=== PATIENT | male | born 1985 | race Two or more races ===

== ENCOUNTER 2019-05-19 02:42 | Inpatient (IN) | payer BC ==
[~2019-05-19] VITALS: Ht 185.4 cm; Wt 133.5 kg
[2019-05-19 03:12] LABS: Basophils # (auto) 0.1 uL; Eosinophils # (auto) 0.2 uL; Hemoglobin 10.4 g/dL (13.5-17.5); Monocytes # (auto) 0.5 uL
[2019-05-19 03:14] LABS: Basophils % (auto) 0.9 % (0.0-2.0); Eosinophils % (auto) 2.5 % (0.0-7.0); Hematocrit 33.6 % (41.0-53.0); Lymphocytes # (auto) 1.9 uL; Lymphocytes % (auto) 28.9 % (10.0-50.0); Mean Corpuscular Hemoglobin 23.4 pg (28.0-32.0); Mean Corpuscular Volume 75.5 fL (80.0-100.0); Monocytes % (auto) 7.9 % (0.0-12.0); Neutrophils % (auto) 59.8 % (37.0-80.0); Nucleated Red Blood Cells % 0.2 %; Platelet Count (auto) 311 10^3/uL (140-450); Red Blood Cells 4.45 10^6/uL (4.5-5.90); Red Cell Distribution Width 19.8 % (11.8-14.3); White Blood Cell 6.7 10^3/uL (4.4-10.8)
[2019-05-19] MEDS ORDERED: MORPHINE SULFATE 4 MG/ML SYR/VIAL IV ONE (03:15)
[2019-05-19] MEDS ORDERED: ONDANSETRON HCL 4 MG/2 ML VIAL IV ONE (03:15)
[2019-05-19 03:32] LABS: Albumin 3.4 g/dL (3.4-5.0); BUN/Creatinine Ratio 18.1; Potassium 4.5 mmol/L (3.5-5.1)
[2019-05-19 03:35] LABS: Bilirubin, Total 0.3 mg/dL (0.2-1.0); Total Protein 7.1 g/dL (6.4-8.2)
[2019-05-19] MEDS ORDERED: HYDROmorphone HCL 2 MG/ML VL IV ONE ×3 (04:00→05:45)
[2019-05-19 04:44] LABS: Lactic Acid w/Reflex 3.8 mmol/L (0.4-2.0)
[2019-05-19] MEDS ORDERED: VANCOMYCIN PER PHARMACY 1,000 MG IV SCH (05:45)
[2019-05-19] MEDS ORDERED: SODIUM CHLORIDE 0.9% 3,200 ML IV ONE (05:45)
[2019-05-19] MEDS ORDERED: PIPERACILLIN-TAZOB 3.375GM 100 ML IV SCH (06:00)
[2019-05-19 06:52] LABS: Urine Bacteria NONE SEEN /hpf (None Seen); Urine Blood Negative /uL (Negative); Urine Mucus FEW (None Seen); Urine Specific Gravity 1.047 (1.001-1.035); Urine WBC 1 /hpf (0 - 3)
[2019-05-19] MEDS ORDERED: PROMETHAZINE HCL 25 MG/ML 1ML IV ONE (07:00)
[2019-05-19] MEDS ORDERED: LORazepam 2MG/ML-1ML VIAL IV ONE (07:00)
[2019-05-19] MEDS ORDERED: SODIUM CHLORIDE 0.9% 1,000 ML IV ONE ×2 (07:11)
[2019-05-19 07:16] LABS: INR 0.97 (0.9-1.15); Partial Thromboplastin Time 26.2 sec (23.64-32.05)
[2019-05-19 08:46] LABS: Lactic Acid w/Reflex 2.1 mmol/L (0.4-2.0)
[2019-05-19] MEDS ORDERED: VANCOMYCIN 1,500 MG in D5W 5% 250 ML IV SCH (09:00)
[2019-05-19] MEDS: SODIUM CHLORIDE 0.9% 1,000 ML IV SCH ×2 (09:28→17:19)
[2019-05-19] MEDS ORDERED: LORazepam 2MG/ML-1ML VIAL IV PRN (09:30)
[2019-05-19] MEDS ORDERED: NITROGLYCERIN 0.4 MG SL TAB SL PRN (09:30)
[2019-05-19] MEDS ORDERED: PANTOPRAZOLE 40 MG/10 ML VIAL INJ IV ONE (09:30)
[2019-05-19] MEDS ORDERED: MORPHINE SULFATE 4 MG/ML SYR/VIAL IV PRN (09:30)
[2019-05-19] MEDS ORDERED: THIAMINE 100mg/ml INJ (200mg/2ml VIAL) IV ONE (09:30)
[2019-05-19] MEDS ORDERED: MORPHINE SULF INJ 2 MG/ML SYRINGE 1ML IV PRN ×2 (09:30)
[2019-05-19] MEDS ORDERED: IOHEXOL 300 MG/ML 100ML BOTTLE IJ ONE (09:43)
[2019-05-19] MEDS ORDERED: ALUM & MAG HYDROX-SIMETH LIQ(MAALOX) 30 ML PO ONE (09:45)
[2019-05-19] MEDS: THIAMINE 100mg/ml INJ (200mg/2ml VIAL) IV SCH (10:00)
[2019-05-19] MEDS ORDERED: VANCOMYCIN 1,250 MG in D5W 5% 250 ML IV SCH (10:00)
[2019-05-19 10:13] LABS: Alcohol, Urine < 3.0 mg/dL (0-5); Amphetamine Screen, Urine NEGATIVE (NEGATIVE); Barbiturate Scree,Urine NEGATIVE (NEGATIVE); Benzodiazephine Screen, Urine NEGATIVE (NEGATIVE); Cannabinoid Screen, Urine POSITIVE (NEGATIVE); Cocaine Screen, Urine NEGATIVE (NEGATIVE); Opiate Scree,Urine POSITIVE (NEGATIVE); Phencyclidine Screen, Urine NEGATIVE (NEGATIVE)
[2019-05-19] MEDS: FAMOTIDINE (10MG/ML) 2ML VL IV SCH ×2 (10:26→22:25)
[2019-05-19] MEDS ORDERED: LABETALOL HCL 5 MG/ML ML 20ML VIAL IV PRN (11:45)
[2019-05-19 11:48] LABS: Hematocrit 48.1 % (41.0-53.0); Hemoglobin 16.5 g/dL (13.5-17.5)
[2019-05-19] MEDS: cefTRIAXone 1GM/50ML D5W 50 ML IV SCH (13:09)
[2019-05-19] MEDS: chlordiazePOXIDE HCL 5 MG CAP PO SCH ×2 (13:09→17:18)
--- NOTE | 2019-05-19 13:30 | NUR ---
Telemetry admit from ER PATIENT admitted to Telemetry unit after REPORT received. Patient oriented to unit, room, bed, and unit policies regarding patient care and visiting hours. Patient now on continuous telemetry monitoring.Patient placed on bedside oxygen, weighed by bedscale and encouraged to call if they need something. All questions and concerns addressed, patient verbalized understanding.
[2019-05-19] MEDS: metroNIDAZOLE 500MG/100ML 100 ML IV SCH ×2 (14:53→22:25)
[2019-05-19 15:39] VITALS: BP 162/102
[2019-05-19 17:00] VITALS: BP 166/101
--- NOTE | 2019-05-19 17:00 | NUR ---
CALLED DR ACEVEDO FOR PRN PAIN MEDICATION. ORDERS RECEIVED. WILL CARRY OUT.
[2019-05-19] MEDS: HYDROmorphone HCL 2 MG/ML VL IV PRN ×2 (17:17→21:17)
[2019-05-19 18:04] LABS: Hematocrit 49.1 % (41.0-53.0); Hemoglobin 16.7 g/dL (13.5-17.5)
[2019-05-19 18:11] VITALS: BP 148/92
[2019-05-19 18:21] LABS: Amylase 202 U/L (25-115)
[2019-05-19 18:31] LABS: Lipase 1804 U/L (73-393)
--- NOTE | 2019-05-19 19:33 | NUR ---
RECEIVED PATIENT FROM DAY SHIFT RN. PATENT RESTING IN BED. NO S/S OF DISTRESS NOTED. PATIENT C/O ABD PAIN @ 10/10 AND YELLING AND SCREAMING IN THE BED. INSTRUCTED PATIENT THE SCHEDULE OF PAIN MEDICATION, AND WILL COME WHEN THE TIME IS DUE. PATIENT YELLING AND STATED HE WILL FROM THE FUCKING PAIN. PATIENT REQUESTED TO CALL MD AGAIN. WILL PAGE HOSPITALIST. POC INSTRUCTED AND ENCOURAGED PATIENT TO CALL FOR TIRE REPAIRER IF NEEDED. BED IN LOWEST POSITION WITH SIDE RAILS UP X 2. CALL MATHUR WITHIN REACH. CONTINUE TO MONITOR FOR CHANGES Q1H AND PRN.
--- NOTE | 2019-05-19 19:37 | NUR ---
Called/paged Dr. ACEVEDO called re:PATIENT NEEDS MORE PAIN MEDICATION. Waiting for call back. Continue care.
[2019-05-19] MEDS: PROMETHAZINE HCL 25 MG/ML 1ML IV PRN (21:17)
--- NOTE | 2019-05-19 21:25 | NUR ---
MEDICATED PATIENT FOR PAIN @ 10/10 WELL FOR VOMITING. PATIENT DID VOMIT ONCE EARLIER WITH STOMACH CONTENT. CONTINUE TO MONITOR.
--- NOTE | 2019-05-19 22:00 | NUR ---
HOSPITALIST Called/paged MANOLO PAREKH called re:PATIENT NEEDS MORE STRONG PAIN MEDICATION AND WOULD LIKE TO HAVE SOMETHING TO EAT. Waiting for call back. Continue care.
[2019-05-19 22:13] VITALS: BP 168/109
--- NOTE | 2019-05-19 22:15 | NUR ---
HOSPITALIST returned call MANOLO PAREKH returned call, updated on patient status and reason for call, NO TREATMENT CHANGED Continue care.
--- NOTE | 2019-05-19 23:51 | NUR ---
RECEIVED CALL FROM TELE MONITOR, PATIENT'S HR UP TO 140S, PATIENT IS ROLLING ON THE BED FOR PAIN. AND PATIENT'S HR VARIES FROM 110 TO 130 NOW. WILL COME BACK FOR PAIN MEDICATION LATER WHEN THE TIME IS DUE. CONTINUE TO MONITOR.
[2019-05-20] MEDS: SODIUM CHLORIDE 0.9% 1,000 ML IV SCH ×2 (00:21→05:32)
[2019-05-20] MEDS: chlordiazePOXIDE HCL 5 MG CAP PO SCH ×4 (00:21→18:08)
[2019-05-20 00:54] LABS: Hematocrit 45.8 % (41.0-53.0); Hemoglobin 15.9 g/dL (13.5-17.5)
[2019-05-20] MEDS: PROMETHAZINE HCL 25 MG/ML 1ML IV PRN (01:15)
[2019-05-20] MEDS: HYDROmorphone HCL 2 MG/ML VL IV PRN ×9 (01:15→22:16)
--- NOTE | 2019-05-20 01:19 | NUR ---
MEDICATED PATIENT FOR PAIN @ 06/26. CONTINUE TO MONITOR.
--- NOTE | 2019-05-20 04:26 | NUR ---
PATIENT TRIED BM, DID NOT MAKE IT. PATIENT BACK TO BED. HR DOWN TO 119 FROM 150S. CONTINUE TO MONITOR.
[2019-05-20 05:00] VITALS: BP 171/118
[2019-05-20] MEDS: metroNIDAZOLE 500MG/100ML 100 ML IV SCH (05:31)
--- NOTE | 2019-05-20 05:32 | NUR ---
MEDICATED PATIENT FOR PAIN @ 06/26. CONTINUE TO MONITOR.
[2019-05-20 06:19] LABS: Basophils # (auto) 0 uL; Basophils % (auto) 0.2 % (0.0-2.0); Eosinophils # (auto) 0 uL; Hemoglobin 15.4 g/dL (13.5-17.5); Lymphocytes # (auto) 1.1 uL; Lymphocytes % (auto) 6.6 % (10.0-50.0); Mean Corpuscular Hgb Conc. 35.1 g/dL (32.0-36.0); Mean Corpuscular Volume 94.2 fL (80.0-100.0); Monocytes # (auto) 0.9 uL; Monocytes % (auto) 5.7 % (0.0-12.0); Neutrophils # (auto) 14.6 uL; Neutrophils % (auto) 87.5 % (37.0-80.0); Platelet Count (auto) 236 10^3/uL (140-450); Red Blood Cells 4.67 10^6/uL (4.5-5.90); Red Cell Distribution Width 12.3 % (11.8-14.3); White Blood Cell 16.7 10^3/uL (4.4-10.8)
[2019-05-20 06:33] LABS: Potassium 3.2 mmol/L (3.5-5.1)
[2019-05-20 06:41] LABS: Albumin 3.3 g/dL (3.4-5.0); BUN/Creatinine Ratio 11.7; Calcium 7.7 mg/dL (8.5-10.1)
[2019-05-20 06:44] LABS: Bilirubin, Total 1.4 mg/dL (0.2-1.0); Total Protein 6.7 g/dL (6.4-8.2)
--- NOTE | 2019-05-20 07:31 | NUR ---
OPENING NOTE Assumed care of patient from NOC RN, Melyssa. Patient out of bed stating that "the pain is so bad I don't know what to do". Patient very upset due to the amount of pain he is in, states "I had a horrible night, I couldn't sleep because of the pain". Attempted to calm patient down, reassured him that prn pain medication would be given as soon as possible. C/O right upper quadrant abdominal 10/10 on adult pain scale. Instructed on POC and to call for assist PRN, verbalized understanding. Patient now sitting on bed which is in lowest, locked position with side rails up x2 and call light within reach. Will continue to monitor for changes Q1hr and PRN.
[2019-05-20 08:34] VITALS: BP 166/95
[2019-05-20] MEDS: cefTRIAXone 1GM/50ML D5W 50 ML IV SCH (08:35)
[2019-05-20] MEDS: ENALAPRILAT 1.25 MG/ML-1ML VIAL IV PRN ×2 (08:36→13:38)
--- NOTE | 2019-05-20 08:45 | NUR ---
HYPERTENSION SCIENCE TECHNICIAN's documented BP 166/95 HR 109bpm. BP was reassessed, 193/118 HR 108pbm. Patient is an extreme amount of pain at the moment, prn pain and antihypertensive medications given. Will continue to monitor closely.
--- NOTE | 2019-05-20 10:05 | NUR ---
REASSESSMENT BP reassessed, 163/114 HR 112bpm. Patient still in "alot of pain" and states "it's really hard to relax". Will continue to monitor closely and inform MD of continued hypertension.
--- NOTE | 2019-05-20 10:46 | NUR ---
PAGED Paged Dr. Bergman per patient's request for "a stronger pain medication". Patient states current prn pain medication "only lasts for about 45mins then I'm back in pain". Awaiting call back.
--- NOTE | 2019-05-20 10:58 | NUR ---
FAMILY Patient's at bedside.
--- NOTE | 2019-05-20 11:15 | NUR ---
AT BEDSIDE Dr. Bergman at patient's bedside, aware of pain level and hypertension.
[2019-05-20] MEDS: FAMOTIDINE (10MG/ML) 2ML VL IV SCH ×2 (11:23→22:11)
[2019-05-20] MEDS: THIAMINE 100mg/ml INJ (200mg/2ml VIAL) IV SCH (11:23)
[2019-05-20] MEDS: KETOROLAC TROMETH 30 MG/ML 1ML VIAL IV PRN ×2 (11:40→19:52)
[2019-05-20] MEDS: SOD CHL 0.45% 1,000 ML IV SCH ×2 (12:11→20:19)
[2019-05-20 12:38] VITALS: BP 166/113
[2019-05-20] MEDS ORDERED: POTASSIUM CHLORIDE 40 MEQ, LIDOCAINE 1% (LOCAL ANESTH.) 4 ML in SODIUM CHL 0.9% 100 ML IV ONE (12:45)
--- NOTE | 2019-05-20 13:35 | NUR ---
HYPERTENSION Patient's BP 166/113 HR 115bpm. Prn Vasotec administered, will continue to monitor.
[2019-05-20] MEDS: NICOTINE 14 MG/24HR TOPICAL PATCH TD SCH (13:37)
[2019-05-20 13:42] LABS: Lactic Acid w/Reflex 3.1 mmol/L (0.4-2.0)
--- NOTE | 2019-05-20 15:00 | NUR ---
REASSESSMENT BP reassessed, 139/96 HR 101bpm. Will continue to monitor.
[2019-05-20 15:52] LABS: Hepatitis B Surface Antigen Negative (Negative)
[2019-05-20 15:53] LABS: Hepatitis C Antibody Negative (Negative)
[2019-05-20 15:54] LABS: Hepatitis A Ab IgM Negative; Hepatitis B Core IgM Negative
[2019-05-20 17:00] VITALS: BP 136/77
[2019-05-20] MEDS: MEROPENEM 1GM IVPB 100 ML IV SCH ×2 (17:14→22:11)
[2019-05-20] MEDS: cloNIDine HCL 0.1 MG TAB PO PRN (18:10)
--- NOTE | 2019-05-20 19:35 | NUR ---
Opening Shift Note Assumed care of patient, awake and alert oriented x4. No S/S of distress/SOB noted. Bed is in lowest locked position and call light is within reach of the patient. Instructed on POC and to call for assist PRN.
--- NOTE | 2019-05-20 19:38 | NUR ---
CLOSING NOTE Endorsed care of patient to NOC Pura PITT.
[2019-05-20 22:00] VITALS: BP 155/94
[2019-05-20] MEDS: METOPROLOL TARTRATE 25 MG TAB PO SCH (22:12)
--- NOTE | 2019-05-20 23:30 | NUR ---
SCD: Applied SCD's to patients bilateral legs and using SCD machine. Patient tolerated well
[2019-05-21] MEDS: chlordiazePOXIDE HCL 5 MG CAP PO SCH ×5 (00:08→23:41)
[2019-05-21] MEDS: HYDROmorphone HCL 2 MG/ML VL IV PRN ×11 (00:10→23:10)
[2019-05-21] MEDS: SOD CHL 0.45% 1,000 ML IV SCH ×3 (02:14→19:53)
[2019-05-21] MEDS: KETOROLAC TROMETH 30 MG/ML 1ML VIAL IV PRN ×3 (03:51→19:54)
[2019-05-21] MEDS: ENALAPRILAT 1.25 MG/ML-1ML VIAL IV PRN (04:02)
[2019-05-21 05:00] VITALS: BP 151/83
--- NOTE | 2019-05-21 05:07 | NUR ---
PATIENTS URINE: DAY CARE HOME PROVIDER NOTIFIED THIS RN THAT PATIENT STATED THAT HIS URINE WAS STARTING TO TURN RED THE TWO TIMES HE HAS WENT TO URINATE IN THE TOILET. TO PROVIDE PATIENT WITH URINAL AND INSTRUCT PATIENT TO USE URINAL SO THIS RN CAN ASSESS PATIENTS URINE.
[2019-05-21 06:13] LABS: Basophils # (auto) 0 uL; Basophils % (auto) 0.3 % (0.0-2.0); Eosinophils # (auto) 0.1 uL; Eosinophils % (auto) 0.9 % (0.0-7.0); Hematocrit 37.2 % (41.0-53.0); Hemoglobin 13.2 g/dL (13.5-17.5); Lymphocytes # (auto) 1.1 uL; Lymphocytes % (auto) 9.5 % (10.0-50.0); Mean Corpuscular Hemoglobin 33.5 pg (28.0-32.0); Mean Corpuscular Hgb Conc. 35.5 g/dL (32.0-36.0); Mean Corpuscular Volume 94.3 fL (80.0-100.0); Monocytes % (auto) 8.6 % (0.0-12.0); Neutrophils % (auto) 80.7 % (37.0-80.0); Platelet Count (auto) 170 10^3/uL (140-450); Red Blood Cells 3.94 10^6/uL (4.5-5.90); Red Cell Distribution Width 12.5 % (11.8-14.3); White Blood Cell 11.2 10^3/uL (4.4-10.8)
[2019-05-21] MEDS: MEROPENEM 1GM IVPB 100 ML IV SCH ×3 (06:26→21:48)
[2019-05-21 06:33] LABS: BUN/Creatinine Ratio 15.2; Calcium 7.8 mg/dL (8.5-10.1); Magnesium 2.3 mg/dL (1.6-2.6); Potassium 3.8 mmol/L (3.5-5.1)
--- NOTE | 2019-05-21 07:25 | NUR ---
OPENING NOTE Assumed care of patient from NOC RNPura. Patient awake and alert with no S/S of distress/SOB. C/O generalized abdominal and back pain 8/10 on adult pain scale, will administer prn pain medication as ordered. Suggested patient wear SCD's as ordered, states he will "wear them in a little while". Instructed on POC and to call for assist PRN, verbalized understanding. Bed in lowest, locked position with side rails up x2 and call light within reach. Will continue to monitor for changes Q1hr and PRN.
[2019-05-21 08:47] VITALS: BP 150/73
[2019-05-21] MEDS: THIAMINE 100mg/ml INJ (200mg/2ml VIAL) IV SCH (08:52)
[2019-05-21] MEDS: FAMOTIDINE (10MG/ML) 2ML VL IV SCH ×2 (08:53→21:48)
[2019-05-21] MEDS: METOPROLOL TARTRATE 25 MG TAB PO SCH ×2 (08:54→21:49)
[2019-05-21] MEDS: NICOTINE 14 MG/24HR TOPICAL PATCH TD SCH (08:55)
--- NOTE | 2019-05-21 09:54 | NUR ---
PAGED Paged Dr. Bergman per patient's request for "something for a headache". Awaiting call back.
[2019-05-21] MEDS ORDERED: ACETAMINOPHEN 325 MG TAB PO PRN (10:00)
[2019-05-21] MEDS: LISINOPRIL 10 MG TAB PO SCH (10:18)
--- NOTE | 2019-05-21 10:45 | NUR ---
URINE Per patient and report received by NOC RN, patient had "blood in his urine". Visualized urine which appeared dark in color. Dr. Bergman aware, states it appears that the patient is dehydrated and very unlikely to be hematuria. Will continue to monitor.
[2019-05-21 13:00] VITALS: BP 148/80
--- NOTE | 2019-05-21 14:24 | NUR ---
NUTRITION ASSESSMENT NOTES Please refer to link notes of nutrition screen form filed under the intervention section of the plan of care for further details. Est. Needs: 2250 kcal to 2600 kcal (20-23 kcal/kgBW), 83 gms to 100 gms pro (1.0-1.2 gms/kgIBW: 83 kg). Will continue to monitor pertinent labs and reassess nutrient need prn Thank you. Addendum: 05/21/19 at [address] Amended: Links added.
[2019-05-21 17:00] VITALS: BP 139/76
--- NOTE | 2019-05-21 19:40 | NUR ---
Opening Shift Note Assumed care of patient, awake and alert oriented x4. No S/S of distress/SOB noted. Bed is in lowest locked position with bed rails up x2 and call light is within reach of the patient. Instructed on POC and to call for assist PRN.
[2019-05-21 22:00] VITALS: BP 126/90
[2019-05-21] MEDS: cloNIDine HCL 0.1 MG TAB PO PRN (23:09)
[2019-05-22] MEDS: HYDROmorphone HCL 2 MG/ML VL IV PRN ×9 (02:19→22:04)
[2019-05-22] MEDS: SOD CHL 0.45% 1,000 ML IV SCH ×3 (04:48→19:49)
[2019-05-22] MEDS: KETOROLAC TROMETH 30 MG/ML 1ML VIAL IV PRN ×3 (05:22→23:37)
[2019-05-22] MEDS: chlordiazePOXIDE HCL 5 MG CAP PO SCH ×4 (05:22→23:37)
[2019-05-22] MEDS: MEROPENEM 1GM IVPB 100 ML IV SCH ×2 (05:23→14:20)
[2019-05-22] MEDS: cloNIDine HCL 0.1 MG TAB PO PRN (05:25)
[2019-05-22 05:29] VITALS: BP 154/84
--- NOTE | 2019-05-22 07:15 | NUR ---
Opening Shift Note Assumed care of patient, awake and alert X 4. No S/S of distress/SOB, lower back pain of 8/10 reported, pain medication not available per MD orders, offered heat pack and repositioning. Will medicated per MD orders once it is appropriate time for pain medication. Respirations are even and unlabored on 2L O2 via NC. Updated on POC and instructed to call for assistance as needed, patient verbalized understanding. Bed locked in lowest position, side rails up x2, call light within reach. Will continue to monitor for changes Q1hr and PRN.
[2019-05-22 09:00] VITALS: BP 152/73
[2019-05-22] MEDS: THIAMINE 100mg/ml INJ (200mg/2ml VIAL) IV SCH (09:45)
[2019-05-22] MEDS: FAMOTIDINE (10MG/ML) 2ML VL IV SCH ×2 (09:45→20:06)
[2019-05-22] MEDS: NICOTINE 14 MG/24HR TOPICAL PATCH TD SCH (09:47)
[2019-05-22] MEDS: METOPROLOL TARTRATE 25 MG TAB PO SCH ×2 (09:48→20:08)
[2019-05-22] MEDS: LISINOPRIL 10 MG TAB PO SCH (09:48)
[2019-05-22 12:00] VITALS: BP 146/79
[2019-05-22] MEDS ORDERED: ZOLPIDEM TARTRATE 5 MG TAB PO PRN (15:15)
[2019-05-22 17:05] VITALS: BP 138/78
[2019-05-22 21:00] VITALS: BP 147/94
[2019-05-22] MEDS: metroNIDAZOLE 500MG/100ML 100 ML IV SCH (22:10)
[2019-05-23] MEDS: ZOLPIDEM TARTRATE 5 MG TAB PO PRN ×2 (00:05→23:32)
[2019-05-23] MEDS: HYDROmorphone HCL 2 MG/ML VL IV PRN ×11 (00:06→23:35)
[2019-05-23 04:30] VITALS: BP 154/96
[2019-05-23] MEDS: SOD CHL 0.45% 1,000 ML IV SCH ×3 (06:01→19:45)
[2019-05-23] MEDS: chlordiazePOXIDE HCL 5 MG CAP PO SCH ×4 (06:03→23:32)
[2019-05-23] MEDS: metroNIDAZOLE 500MG/100ML 100 ML IV SCH ×3 (06:03→23:34)
--- NOTE | 2019-05-23 07:29 | NUR ---
OPENING NOTE Assumed care of patient from NOC RN. Patient awake and alert with no S/S of distress/SOB. C/O generalized back pain 8/10 on adult pain scale, will administer prn pain medication as ordered. Instructed on POC and to call for assist PRN, verbalized understanding. Bed in lowest, locked position with side rails up x2 and call light within reach. Will continue to monitor for changes Q1hr and PRN.
[2019-05-23] MEDS: KETOROLAC TROMETH 30 MG/ML 1ML VIAL IV PRN ×3 (08:58→23:33)
[2019-05-23 09:00] VITALS: BP 160/102
[2019-05-23 09:22] LABS: Hemoglobin 12.4 g/dL (13.5-17.5); Mean Corpuscular Hemoglobin 32.2 pg (28.0-32.0); Mean Corpuscular Hgb Conc. 34.4 g/dL (32.0-36.0); Mean Corpuscular Volume 93.4 fL (80.0-100.0); Platelet Count (auto) 268 10^3/uL (140-450); Red Blood Cells 3.86 10^6/uL (4.5-5.90); Red Cell Distribution Width 12.5 % (11.8-14.3); White Blood Cell 13.7 10^3/uL (4.4-10.8)
[2019-05-23 09:31] LABS: Basophils % (manual) 0 (0.0-2.0); Blast Cells 0; Eosinophils % (manual) 0 (0-7); Promyelocytes % 0; Reactive Lymphocytes 0
[2019-05-23 09:59] LABS: BUN/Creatinine Ratio 12.1; Calcium 7.8 mg/dL (8.5-10.1)
[2019-05-23 10:00] LABS: Potassium 2.8 mmol/L (3.5-5.1)
--- NOTE | 2019-05-23 10:03 | NUR ---
CRITICAL LAB Spoke with Damion in lab, patient has critical K+ level of 2.8. Will notify
--- NOTE | 2019-05-23 10:15 | NUR ---
AWARE Dr. Bergman aware of critical lab value. States will order replacement but recommends repeat test first.
[2019-05-23] MEDS: LEVOFLOXACIN 750MG 150 ML IV SCH (10:23)
[2019-05-23] MEDS: THIAMINE 100mg/ml INJ (200mg/2ml VIAL) IV SCH (10:23)
[2019-05-23] MEDS: FAMOTIDINE (10MG/ML) 2ML VL IV SCH ×2 (10:23→21:01)
[2019-05-23] MEDS: NICOTINE 14 MG/24HR TOPICAL PATCH TD SCH (10:24)
[2019-05-23] MEDS: METOPROLOL TARTRATE 25 MG TAB PO SCH ×2 (10:24→21:00)
[2019-05-23] MEDS: LISINOPRIL 10 MG TAB PO SCH (10:24)
[2019-05-23] MEDS ORDERED: POTASSIUM CHLORIDE 40 MEQ, LIDOCAINE 1% (LOCAL ANESTH.) 4 ML in SODIUM CHL 0.9% 100 ML IV ONE (10:30)
[2019-05-23] MEDS ORDERED: POTASSIUM CHL 20 Meq TABLET PO ONE (10:30)
[2019-05-23 10:54] LABS: Band Neutrophils % (manual) 1; Lymphocytes % (manual) 13 (10.0-50.0); Metamyelocytes % 1; Monocytes % (manual) 12 (0-12); Myelocytes % 1
--- NOTE | 2019-05-23 12:08 | NUR ---
Nutrition Follow-up Notes Wt.: 114.7 kg as of yesterday. Pt's asleep, no immediate family member at bedside when rounded this morning. Pt's no signs of distress noted earlier, currently on Regular diet with adequate PO intake aeb 88% ave. consumed meals (x2) since last night. Est. Needs: 2250 kcal to 2600 kcal (20-23 kcal/kgBW), 83 gms to 100 gms pro (1.0-1.2 gms/kgIBW: 83 kg). Will continue to monitor pertinent labs and reassess nutrient need prn Labs: Na 133 L, K 2.8 L, Ca 7.8 L, Cr 0.58 L ; Alb 3.3 L; Trig 243 H, Amylase 128 H, Lipase 652 H Skin: Drew scale 22, low risk, skin intact per progressive die maker. GI: Pt had 1 BM this morning per progressive die maker. PES: Partially resolved: Increased nutrient needs r/t altered GI problems aeb Sepsis,Acute pancreatitis, mild hypoalbuminemia, NPO. Altered nutrition related lab values r/t current/chronic medical condition aeb hyponatremia, mild hypoalbuminemia, elev. Trig, lipase, amylase, hyperbilirubinemia, hypocalcemia and mild hypoalbuminemia Obesity r/t hx food intake more than body requirement aeb 135% IBW, BMI 32.7 kg/m2 and increased body adiposity Will continue to monitor PO intake, skin status, pertinent labs and weight trend. F/u in 3 to 5 days. Rec.: 1.) If lipid profile remain elev., consider Soft Low Fat diet when medically appropriate. 2.) If Albumin continues trending down, consider Prostat 1 pkt BID. 3.) Continue close supervision and feeding with meals. 4.) Refer to RD for further nutrition educ. and weight monitoring upon discharge. 5.) Continue current plan of care.
--- NOTE | 2019-05-23 12:42 | NUR ---
BED Patient c/o increased back pain secondary to mattress, states "I have bulging discs in my back and this mattress is making it impossible for me to relax or be comfortable". Dr. Bergman aware, new order received for specialty mattress.
[2019-05-23 13:00] VITALS: BP 162/90
--- NOTE | 2019-05-23 13:24 | NUR ---
AIR MATTRESS: Ordered air mattress at [facility], Reference# [id number], ETA [id number]. Please call [facility] at [phone] if needed to follow up or for any changes. Addendum: 05/23/19 at 1325 by Marya Coreas RN Amended: Links added.
--- NOTE | 2019-05-23 15:18 | NUR ---
IV IV removed from right hand secondary to patient c/o of pain. Multiple attempts to obtain new IV access were initiated without success. An order for midline insertion was placed.
--- NOTE | 2019-05-23 15:50 | NUR ---
Midline Placement Patient educated on need for midline placement. All risks and benefits explained and all questions and concerns addresses prior to procedure. 18g/10cm midline inserted via Left basilic vein using Ultrasound. Sterile technique utilized. Blood return obtained from single lumen and flushed easily with NS using proper technique. Midline secured with saline lock; biodisc and occlusive dressing applied. Primary RN notified. Midline lot #[id number]. Note: Inserted by Sandi Greer RN.
[2019-05-23 17:00] VITALS: BP 156/97
--- NOTE | 2019-05-23 19:12 | NUR ---
CLOSING NOTE Endorsed care of patient to NOC Adriana PITT.
--- NOTE | 2019-05-23 19:42 | NUR ---
Opening Shift Note Assumed care of patient, awake and alert. No S/S of distress/SOB or pain. Instructed on POC and to call for assist PRN, will continue to monitor for changes Q1hr and PRN. Patient looking at phone and telling this nurse the times his pain medication is due. Patient sitting on bed using his laptop. EVANGELIST midline in place. Call sanders with in reach. Bed in low position.
[2019-05-23 21:42] VITALS: BP 152/89
[2019-05-24] MEDS: HYDROmorphone HCL 2 MG/ML VL IV PRN ×6 (01:41→13:30)
[2019-05-24] MEDS: SOD CHL 0.45% 1,000 ML IV SCH ×2 (02:16→11:45)
[2019-05-24 04:52] VITALS: BP 161/96
[2019-05-24] MEDS: chlordiazePOXIDE HCL 5 MG CAP PO SCH ×2 (06:13→13:30)
[2019-05-24] MEDS: KETOROLAC TROMETH 30 MG/ML 1ML VIAL IV PRN ×2 (06:15→13:30)
[2019-05-24] MEDS: metroNIDAZOLE 500MG/100ML 100 ML IV SCH ×2 (06:15→14:00)
--- NOTE | 2019-05-24 07:18 | NUR ---
OPENING NOTE Assumed care of patient from NOC RN, Adriana. Patient awake and alert with no S/S of distress/SOB. C/O generalized lower back pain 7/10 on adult pain scale, will administer prn pain medication as ordered. Instructed on POC and to call for assist PRN, verbalized understanding. Moved specialty bed into patient's room, bed in lowest, locked position with side rails up x2 and call light within reach. Will continue to monitor for changes Q1hr and PRN.
[2019-05-24] MEDS: THIAMINE 100mg/ml INJ (200mg/2ml VIAL) IV SCH (09:05)
[2019-05-24] MEDS: METOPROLOL TARTRATE 25 MG TAB PO SCH (09:06)
[2019-05-24] MEDS: LISINOPRIL 10 MG TAB PO SCH (09:06)
[2019-05-24] MEDS: FAMOTIDINE (10MG/ML) 2ML VL IV SCH (09:06)
[2019-05-24] MEDS: LEVOFLOXACIN 750MG 150 ML IV SCH (09:06)
[2019-05-24] MEDS: NICOTINE 14 MG/24HR TOPICAL PATCH TD SCH (09:07)
[2019-05-24 09:50] VITALS: BP 122/75
[2019-05-24 10:58] LABS: Basophils # (auto) 0 uL; Basophils % (auto) 0.3 % (0.0-2.0); Eosinophils # (auto) 0.1 uL; Eosinophils % (auto) 1.1 % (0.0-7.0); Hematocrit 33.1 % (41.0-53.0); Hemoglobin 11.4 g/dL (13.5-17.5); Lymphocytes # (auto) 1.5 uL; Lymphocytes % (auto) 10.4 % (10.0-50.0); Mean Corpuscular Hemoglobin 32.3 pg (28.0-32.0); Mean Corpuscular Hgb Conc. 34.5 g/dL (32.0-36.0); Mean Corpuscular Volume 93.5 fL (80.0-100.0); Monocytes # (auto) 2.1 uL; Monocytes % (auto) 15.2 % (0.0-12.0); Neutrophils # (auto) 10.2 uL; Platelet Count (auto) 323 10^3/uL (140-450); Red Blood Cells 3.54 10^6/uL (4.5-5.90); Red Cell Distribution Width 12.3 % (11.8-14.3)
[2019-05-24 11:05] LABS: Amylase 60 U/L (25-115); Lipase 539 U/L (73-393)
[2019-05-24 11:07] LABS: BUN/Creatinine Ratio 8.6; Calcium 7.9 mg/dL (8.5-10.1); Potassium 3.5 mmol/L (3.5-5.1)
[2019-05-24] MEDS ORDERED: POTASSIUM CHL 20 Meq TABLET PO ONE (11:30)
[2019-05-24 13:00] VITALS: BP 141/94
--- NOTE | 2019-05-24 14:20 | NUR ---
DISCHARGE Discharge instructions given as ordered. Encouraged to follow up with PMD as instructed. All questions and concerns addressed. Patient verbalized understanding. Medication reconciliation form completed and copy given to patient. Midline removed with catheter intact and pressure dressing applied. Telemetry unit returned to ICU. Patient ambulated with all personal belongings, no distress noted at time of departure.
== END 2019-05-24 14:52 | disposition home or self-care (01) | DRG 871 ==
LOC: ER 02:45 → TELE 02:46 → TELE-WESTW 14:15
PROVIDERS: ADMIT Internal Medicine; ATTEND Internal Medicine
DX: A41.9 Sepsis, unspecified organism (principal); K85.21 Alcohol induced acute pancreatitis with uninfected necrosis; F12.90 Cannabis use, unspecified, uncomplicated; I10 Essential (primary) hypertension; K76.0 Fatty (change of) liver, not elsewhere classified; E66.9 Obesity, unspecified; D64.9 Anemia, unspecified; K40.20 Bilateral inguinal hernia, without obstruction or gangrene, not specified as recurrent; F10.20 Alcohol dependence, uncomplicated; Y90.0 Blood alcohol level of less than 20 mg/100 ml; N28.1 Cyst of kidney, acquired; Z79.899 Other long term (current) drug therapy; Z80.3 Family history of malignant neoplasm of breast; Z68.38 Body mass index [BMI] 38.0-38.9, adult
CPT/HCPCS: 36415; 36600; 71045; 74176; 74177; 76705; 80048; 80053; 80061; 80074; 80307; 80320; 81001; 82140; 82150; 82553; 82805; 83036; 83605; 83690; 83735; 84484; 85007; 85014; 85018; 85025; 85027; 85045; 85384; 85610; 85652; 85730; 86141; 86850; 86900; 86901; 87040; 87086; C9113; G0378; J0696; J1885; J1956; J2001; J2185; J2405; J2543; J3490; J7060

== ENCOUNTER 2023-07-05 15:27 | Emergency (ER) | payer BC ==
[~2023-07-05] VITALS: Ht 182.9 cm; Wt 90.0 kg
[2023-07-05] MEDS ORDERED: TETANUS-DIPTH-ACEL PERTUSSIS 0.5ML SYR Tdap IM ONE (16:15)
[2023-07-05] MEDS ORDERED: IBUPROFEN 800 MG TAB PO ONE (16:15)
[2023-07-05] MEDS ORDERED: NEOMYCIN-BACITRACIN-POLYM UNITDOSE PKG TOP OINT TOP ONE (16:15)
[2023-07-05] MEDS ORDERED: IBUP-1455 PO (16:30)
[2023-07-05] MEDS ORDERED: AUG875T PO (16:30)
[2023-07-05] MEDS ORDERED: ACET500T58 PO (16:30)
[2023-07-05 17:41] VITALS: BP 131/78; PULSE 79; RESP 17; TEMP 98.2; O2SAT 96
== END 2023-07-05 17:44 | disposition home or self-care (01) ==
LOC: ER 15:27
DX: S51.812A Laceration without foreign body of left forearm, initial encounter (principal); Z79.899 Other long term (current) drug therapy; W54.0XXA Bitten by dog, initial encounter; Y93.89 Activity, other specified; Y92.89 Other specified places as the place of occurrence of the external cause; Y99.8 Other external cause status
CPT/HCPCS: 73090; 90471; 90715